=== PATIENT | male | born 1985 | race Caucasian/White ===

== ENCOUNTER 2018-04-20 13:24 | Emergency (ER) | payer OTHER ==
[2018-04-20] MEDS: IBUPROFEN 600 MG TAB PO (14:41)
[2018-04-20] MEDS: KETOROLAC 60 MG INJ IM (14:55)
== END 2018-04-20 15:31 | disposition home or self-care (01) ==
LOC: FTE 13:24
DX: S49.92XA Unspecified injury of left shoulder and upper arm, initial encounter (principal); F17.210 Nicotine dependence, cigarettes, uncomplicated; X58.XXXA Exposure to other specified factors, initial encounter; Y92.9 Unspecified place or not applicable
CPT/HCPCS: 73030; 96372; 99284-25